=== PATIENT | male | born 1985 | race Caucasian/White ===

== ENCOUNTER 2019-08-30 04:30 | Inpatient (IN) ==
[2019-08-24 16:07] LABS: Appearance,Urine CLEAR; Bacteria,Urine 0 /hpf (0); Bilirubin,Urine NEG (NEG); Color,Urine YELLOW; Glucose,Urine (UA) NEGATIVE (NEG); Ketones,Urine NEG (NEG); Leukocyte Esterase,Urine NEG /uL (NEG); Mucus,Urine FEW /hpf (0); Nitrate,Urine NEG (NEG); Protein,Urine 30 mg/dL (NEG); Specific Gravity,Urine 1.041 (1.000-1.035); Urine Blood NEG mg/dL (<0.03); Urine RBC 0 /hpf (0-1); Urine Squamous Epithelial Cell 0 /hpf (0-4); Urine WBC < 1 /hpf (0-4)
[2019-08-24 19:33] LABS: Basophils # (Auto) 0 K/mcL (0.0-0.3); Basophils % (Auto) 0.4 % (0.0-2.0); Eosinophils # (Auto) 0.1 K/mcL (0.0-0.7); Hematocrit 46.1 % (41.0-55.0); Hemoglobin 15.4 g/dL (13.5-16.5); Lymphocytes # (Auto) 2.5 K/mcL (1.5-4.8); Lymphocytes % (Auto) 25.3 % (15.5-49.0); Mean Cell Volume 92.1 fL (80.0-100.0); Mean Corpuscular HGB Conc 33.3 g/dL (31.0-36.0); Mean Platelet Volume 8.4 fL (7.4-10.4); Monocytes # (Auto) 0.5 K/mcL (0.1-0.9); Monocytes % (Auto) 5.3 % (1.0-12.0); Platelet Count 249 K/mcL (140-440); RBC 5.01 M/mcL (4.50-5.90); Red Cell Distribution Width 13.5 % (11.5-14.5); WBC 9.8 K/mcL (4.5-11.0)
[2019-08-24 19:45] LABS: INR 0.9 (0.9-1.1); Prothrombin Time 12.5 sec (11.9-14.5)
[2019-08-24 19:47] LABS: Blood Urea Nitrogen 19 mg/dl (6-20); Calcium 9.4 mg/dl (8.6-10.4); Carbon Dioxide 23 mmol/L (22-30); Chloride 102 mmol/L (96-108); Glomerular Filtration Rate 96; Glucose 101 mg/dL (70-105)
[2019-08-30] MEDS ORDERED: SCOPOLAMINE 1 PATCH PATCH TOPICAL PRN (05:00)
[2019-08-30] MEDS ORDERED: IPRATROPIUM/ALBUTEROL 3 ML AMPUL.NEB NEB PRN ×2 (05:00→08:03)
[2019-08-30] MEDS ORDERED: 0.9 % SODIUM CHLORIDE 9 ML, KETOROLAC 30 MG, ROPIVACAINE HCL/PF 49.5 ML, EPINEPHrine 0.... IJ SCH (06:00)
[2019-08-30] MEDS ORDERED: ceFAZolin 3 GM in DEXTROSE 5% IN WATER 50 ML IV SCH (06:00)
[2019-08-30] MEDS ORDERED: GENTAMICIN SULFATE 800 MG/20 ML VIAL IR ONE (07:20)
[2019-08-30] MEDS ORDERED: HYDROmorphone 2 MG/ML VIAL IV ONE (07:40)
[2019-08-30] MEDS ORDERED: PHENYLEPHRINE 10 MG/ML VIAL IV ONE (07:40)
[2019-08-30] MEDS ORDERED: TRANEXAMIC ACID 1,000 MG/10 ML VIAL IV ONE ×2 (07:40→09:28)
[2019-08-30] MEDS ORDERED: KETOROLAC 30 MG/ML VIAL IV ONE (07:40)
[2019-08-30] MEDS ORDERED: ONDANSETRON 4 MG/2 ML VIAL IV ONE (07:40)
[2019-08-30] MEDS ORDERED: MIDAZOLAM 5 MG/5 ML VIAL IV ONE (07:40)
[2019-08-30] MEDS ORDERED: PROPOFOL 200 MG/20 ML VIAL IV ONE (07:40)
[2019-08-30] MEDS ORDERED: GLYCOPYRROLATE 0.2 MG/ML VIAL IV ONE (07:40)
[2019-08-30] MEDS ORDERED: LIDOCAINE HCL/PF 100 MG/5 ML SYRINGE IV ONE (07:40)
[2019-08-30] MEDS ORDERED: ROPIVACAINE HCL/PF 20 ML VIAL IJ ONE (07:40)
[2019-08-30] MEDS ORDERED: DEXAMETHASONE 10 MG/ML VIAL IV ONE (07:40)
[2019-08-30] MEDS ORDERED: KETAMINE 100 MG/ML ML IV ONE (07:40)
[2019-08-30] MEDS ORDERED: ACETAMINOPHEN 1,000 MG/100 ML BOTTLE IV ONE (08:03)
[2019-08-30] MEDS ORDERED: BENZOCAINE/MENTHOL 1 LOZENGE PO PRN ×2 (08:03→09:28)
[2019-08-30] MEDS ORDERED: FLUMAZENIL 0.1 MG/ML ML IV PRN (08:03)
[2019-08-30] MEDS ORDERED: fentaNYL 100 MCG/2 ML VIAL IV PRN (08:03)
[2019-08-30] MEDS ORDERED: METOPROLOL TARTRATE 5 MG/5 ML VIAL IV PRN (08:03)
[2019-08-30] MEDS ORDERED: METHOCARBAMOL 1,000 MG/10 ML VIAL IV PRN (08:03)
[2019-08-30] MEDS ORDERED: LABETALOL 5 MG/ML ML IV PRN (08:03)
[2019-08-30] MEDS ORDERED: NALOXONE HCL 0.4 MG/ML VIAL IV PRN (08:03)
[2019-08-30] MEDS ORDERED: LACTATED RINGERS 250 ML IV PRN (08:03)
[2019-08-30] MEDS ORDERED: ONDANSETRON 4 MG/2 ML VIAL IV PRN ×2 (08:03→09:28)
[2019-08-30] MEDS ORDERED: LACTATED RINGERS 1,000 ML IV SCH (08:15)
[2019-08-30] MEDS ORDERED: POLYETHYLENE GLYCOL 3350 17 GM PACKET PO PRN (09:28)
[2019-08-30] MEDS ORDERED: BISACODYL 10 MG SUPP.RECT PR PRN (09:28)
[2019-08-30] MEDS ORDERED: FLEETS ADULT ENEMA PR PRN (09:28)
[2019-08-30] MEDS ORDERED: MAGNESIUM HYDROXIDE 30 ML ORAL.SUSP PO PRN (09:28)
--- NOTE | 2019-08-30 09:28 | Brief Operative Note ---
Date of procedure: 08/30/19 Pre-op diagnosis: djd left knee Post-op diagnosis: same Procedure: l TKR Grafts/Implants: Yes (triathlon) Anesthesia: GETA Complications: none Surgeon: Carlos Sapp Pickle Maker: Darin Downs Estimated blood loss (cc): 50 Tourniquet Time (Minutes): 82 Specimens Removed/Pathology: none sent Condition: stable Disposition: PACU
[2019-08-30] MEDS ORDERED: NICOTINE POLACRILEX 2 MG GUM CHEW/PARK PRN (09:34)
--- NOTE | 2019-08-30 10:28 | Operative Note ---
DATE OF OPERATION: 08/30/2019 PREOPERATIVE DIAGNOSIS: Degenerative joint disease, left knee. POSTOPERATIVE DIAGNOSIS: Degenerative joint disease, left knee. OPERATION: Left total knee replacement. SURGEON: Carlos Sapp MD HEAT TRANSFER TECHNICIAN: Darin Downs PA-C. This provider's expertise and technical skill were required throughout the case. The PA assisted with preoperative coordination, intraoperative retraction, wound closure, dressing and splint application, as well as postoperative documentation and care coordination. ANESTHESIA: General. TOURIQUET TIME: 82 minutes. ESTIMATED BLOOD LOSS: 50 mL SUMMARY OF PROCEDURE: General anesthesia was attained. All bony prominences were padded. The left leg was prepped and draped. A thigh-level tourniquet was put up. A midline incision was made from the quadriceps to the tibial tubercle. It was taken down through the subcutaneous fat to the quadriceps and medial retinaculum. A mid vastus approach was used. The VMO was split for about an inch and then 1 inch of quads was split followed by the medial retinaculum. The anterior soft tissue was elevated off the anteromedial tibia. The anterior meniscus was resected medially. The ACL was released. The fat pad was debrided. The notch was exposed as was the anterior femur. The two stab incisions were made in the femur. A 4.0 pin was placed x2. The array was next placed. Two stab incisions were made in the tibia. Two 3.2 pins were placed and drilled into the tibia followed by the array. We then matched anatomic landmarks. I counterclockwise rotated the femur to locate the hip center. The medial malleolus and lateral malleolus were next identified under the robot. The checkpoints were placed, one in the femur and one in the tibia. Balancing was then done using curved osteotomes to balance the flexion and extension gaps. A perfect match was obtained at 20 mm for each gap. The robot was then used to make to do the registration of the anatomic landmarks. 40 were marked on the femur followed by 6 points confirmation and the same on the tibia. The robot was then used to make the cuts in the tibia followed by the cuts in the femur. The bone was removed. The tibial trial was placed for 5. External rotation was applied to the component. The tibial canal was next drilled and broached. The femoral trial was placed and then stabilized with a pin. The two distal prong holes were drilled. We got excellent stability at this point with a 5 femur, 5 tibia and a 9 mm trial. The patella was everted. It measured 22 on the depth gauge. An 8 mm resection was done. The patella sized to a 33 symmetric. The three mounting holes were drilled. The bone surfaces were irrigated throughout. The block was placed throughout the knee by protocol. The components were next cemented in using regular cement (non-antibiotic). The cement was hardened with the knee in full extension. Excess cement was removed. The tourniquet was let down. All bleeding points were coagulated. The quadriceps and medial retinaculum were closed with two running sutures of Stratafix. The subcutaneous tissue was closed with interrupted buried 2-0 Monocryl and the skin was closed with puneet. A sterile compressive dressing was applied. The sponge and needle count was correct. The patient tolerated the procedure well and was taken to the recovery room in stable condition. TJF:maki Job ID: [id number] Doc ID: [id number] Carlos Sapp MD
[2019-08-30] MEDS: 0.9 % SODIUM CHLORIDE 1,000 ML IV SCH (10:39)
--- NOTE | 2019-08-30 10:45 | XRay Report ---
HISTORY: Postop left knee arthroplasty FINDINGS: There is a well-positioned left total knee prosthesis. There are two small bone chips lateral to the prosthetic tibial plateau. The larger measures 1.5 x 4 mm. There is no evidence of a fracture. IMPRESSION: Well-positioned left knee prosthesis Interpreted and Authenticated by: Regan Cooper 08/30/19
[2019-08-30] MEDS: oxyCODONE HCL 5 MG TABLET PO PRN ×3 (12:15→22:04)
[2019-08-30] MEDS: ceFAZolin 1 GM VIAL IV SCH ×2 (14:11→23:00)
[2019-08-30] MEDS: 0.9 % SODIUM CHLORIDE 10 ML SYRINGE IV SCH ×2 (14:12→16:54)
[2019-08-30] MEDS: GABAPENTIN 300 MG CAPSULE PO SCH ×2 (14:52→19:50)
[2019-08-30] MEDS: DOCUSATE SODIUM 100 MG CAPSULE PO SCH (19:49)
[2019-08-30] MEDS: ASPIRIN 81 MG TAB.CHEW PO SCH (19:50)
[2019-08-30] MEDS ORDERED: SENNOSIDES 1 TABLET PO SCH (21:00)
[2019-08-31] MEDS: 0.9 % SODIUM CHLORIDE 1,000 ML IV SCH (00:10)
[2019-08-31] MEDS: oxyCODONE HCL 5 MG TABLET PO PRN ×2 (01:52→07:07)
[2019-08-31] MEDS: 0.9 % SODIUM CHLORIDE 10 ML SYRINGE IV SCH ×2 (02:31→05:33)
[2019-08-31 06:18] LABS: Hematocrit 44.4 % (41.0-55.0); Hemoglobin 14.7 g/dL (13.5-16.5)
[2019-08-31] MEDS ORDERED: OMEPRAZOLE 20 MG CAPSULE PO SCH (07:30)
[2019-08-31] MEDS: GABAPENTIN 300 MG CAPSULE PO SCH (09:04)
[2019-08-31] MEDS: ASPIRIN 81 MG TAB.CHEW PO SCH (09:04)
[2019-08-31] MEDS: DOCUSATE SODIUM 100 MG CAPSULE PO SCH (09:04)
[2019-08-31] MEDS: morphine 15 MG TABLET PO PRN ×3 (09:14→13:03)
--- NOTE | 2019-08-31 11:14 | Discharge Summary ---
Providers - Providers Patient information: Note initiated : 08/31/19 at 11:12 am Service Date, if different from initiated Date: [] Patient: Tyson Mims 34 y/o M admitted on 08/30/19 for Left Total Knee Arthroplasty [place]. Chief Complaint: [] Date of admission: 08/30/19 Discharge date: 08/31/19 Attending physician: Carlos Sapp Hospitalization Discharge diagnosis: left total knee replacement Exam - Exam Clean and dry: Yes Weight bearing status: full Ortho Discharge - TKA - Patient Instructions Diet: Regular Diet Total Knee Protocol: For Total Knee: Start ROM EMELINA with stationary bike or rocking chair. Work on gaining full extension of knee. Posterior dislocation precautions provided. Hip abductor strengthening and gait training instructions provided. Apply Cryocuff as instructed. - Follow Up Plan Disposition: Home, Self-Care Prognosis: Good Rehab Potential: Good I certify that the patient requires SNF services: No Overall status at discharge: patient is not back to baseline - Orders For Discharge Prescriptions: Aspirin [Ecotrin] 81 mg PO DAILY #60 tab.ec Transmission Status: Pending to [facility] morphine 15 - 30 mg PO Q4HP PRN #60 tab PRN Reason: Per Pain Protocol Prescription Printed Additional Discharge Orders: Physical Therapy at Discharge - TKA Location: None Selected CPM Discharge Order Location: None Selected CPM Discharge Order Location: None Selected Toilet Riser Discharge Order Location: None Selected Walker Location: None Selected Pending Studies Resuscitation Status Full Code Diet Regular Diet Start Kim Aug 30 Lunch Aspirin (Aspirin) 81 mg PO BID [facility] Last Admin: 08/31/19 09:04 Dose: 81 mg Documented by: Admin: 08/30/19 19:50 Dose: 81 mg Documented by: TARIQ Docusate Sodium (Colace) 100 mg PO BID [facility] Last Admin: 08/31/19 09:04 Dose: 100 mg Documented by: Admin: 08/30/19 19:49 Dose: 100 mg Documented by: TARIQ Gabapentin (Neurontin) 300 mg PO TID [facility] Last Admin: 08/31/19 09:04 Dose: 300 mg Documented by: Admin: 08/30/19 19:50 Dose: 300 mg Documented by: Admin: 08/30/19 14:52 Dose: 300 mg Documented by: NAB1 Sodium Chloride (Sodium Chloride 0.9%) 1,000 mls @ 75 mls/hr IV .[id number] [facility] Last Admin: 08/31/19 00:10 Dose: 75 mls/hr Documented by: Infusion: 08/30/19 23:59 Dose: 75 mls/hr Documented by: Admin: 08/30/19 10:39 Dose: 75 mls/hr Documented by: NICKY Morphine Sulfate (Morphine) 0 mg IV Q1HP PRN PRN Reason: PAIN LEVEL > 6 Last Admin: 08/31/19 08:47 Dose: 4 mg Documented by: Admin: 08/31/19 05:33 Dose: 4 mg Documented by: Admin: 08/31/19 00:10 Dose: 4 mg Documented by: Admin: 08/30/19 21:44 Dose: 4 mg Documented by: Admin: 08/30/19 19:48 Dose: 4 mg Documented by: Admin: 08/30/19 18:20 Dose: 4 mg Documented by: Admin: 08/30/19 16:54 Dose: 4 mg Documented by: Admin: 08/30/19 14:34 Dose: 4 mg Documented by: Admin: 08/30/19 13:27 Dose: 4 mg Documented by: NICKY Morphine Sulfate (Morphine) 15 - 30 mg PO Q4HP PRN; Protocol PRN Reason: Per Pain Protocol Last Admin: 08/31/19 09:14 Dose: 15 mg Documented by: NICKY Omeprazole (Prilosec) 20 mg PO ACB [facility] Last Admin: 08/31/19 07:07 Dose: 20 mg Documented by: NICKY Ondansetron HCl (Zofran) 4 mg IV Q4HP PRN PRN Reason: Nausea And Vomiting Last Admin: 08/31/19 02:27 Dose: 4 mg Documented by: TARIQ Senna (Senokot) 2 tab PO HS [facility] Last Admin: 08/30/19 19:50 Dose: 2 tab Documented by: TARIQ Sodium Chloride (Saline Flush) 10 ml IV Q8 [facility] Last Admin: 08/31/19 05:33 Dose: 10 ml Documented by: Admin: 08/31/19 02:31 Dose: Not Given Documented by: Admin: 08/30/19 16:54 Dose: 10 ml Documented by: Admin: 08/30/19 14:12 Dose: Not Given Documented by: NICKY Shift Summary 08/31/19 05:27 Shift Summary by Isabell Aden Pt is A&Ox4. VSS on RA. Up ad jeff in room w/FWW. Voiding well. Dressing to left knee CDI. Pt received Roxicodone 10 mg x2 and IV Morphine 4 mg x 4. CPM used for approx. 2 hrs (0-50). Zofran given x1 for nausea. Currently denies nausea & is tolerating PO intake. IV to left wrist, SL. Pt ambulated in the hallway x3 this shift (to nurses station & back each time). Will update with verbal report. Initialized on 08/31/19 05:27 - END OF NOTE
== END 2019-08-31 13:35 | disposition home or self-care (01) | DRG 470 ==
LOC: MEDSUR 04:30
PROVIDERS: ADMIT Orthopaedic Surgery Foot and Ankle Surgery; ATTEND Orthopaedic Surgery Foot and Ankle Surgery